=== PATIENT | female | born 1950 ===

== ENCOUNTER → 2020-07-11 | Outpatient (CLI) | payer OTHER | END | disposition home or self-care (01) | LOC: OFIC 805 10:58 | PROVIDERS: ATTEND Otolaryngology Otology & Neurotology | DX: H90.0 Conductive hearing loss, bilateral (principal); H83.8X3 Other specified diseases of inner ear, bilateral ==

== ENCOUNTER → 2020-07-11 | Outpatient (CLI) | payer OTHER | END | disposition home or self-care (01) | LOC: TOM 13:01 | PROVIDERS: ATTEND Otolaryngology Otology & Neurotology | DX: H83.8X3 Other specified diseases of inner ear, bilateral (principal); H90.0 Conductive hearing loss, bilateral ==

== ENCOUNTER 2020-07-14 15:23 | Outpatient (CLI) | payer OTHER | END 2020-07-14 16:14 | disposition home or self-care (01) | LOC: OFIC 805 15:23 | PROVIDERS: ATTEND Otolaryngology Otology & Neurotology | DX: H90.0 Conductive hearing loss, bilateral (principal); H83.8X3 Other specified diseases of inner ear, bilateral ==